=== PATIENT | female | born 1950 | race Caucasian/White ===

== ENCOUNTER → 2020-11-11 | Outpatient (CLI) | payer OTHER ==
[~2020-11-11] MED LIST: COVID-19 VACC, MRNA(MODERNA)/PF 100 MCG/0.5 ML VIAL IM ONE
== END ==
LOC: VACCPMC 17:00
DX: Z23 Encounter for immunization (principal); Z20.828 Contact with and (suspected) exposure to other viral communicable diseases

== ENCOUNTER → 2020-12-15 | Outpatient (CLI) | payer OTHER | END | DRG 951 | LOC: VACCPMC 09:05 | DX: Z23 Encounter for immunization (principal); Z20.822 Contact with and (suspected) exposure to COVID-19 | CPT/HCPCS: 0012A; 91301 ==

== ENCOUNTER 2024-12-11 08:00 | Outpatient (RCR) | payer MEDICARE | END 2024-12-12 | LOC: PT 08:00 | PROVIDERS: ATTEND Physical Medicine & Rehabilitation Sports Medicine | DX: M76.02 Gluteal tendinitis, left hip (principal) ==

== ENCOUNTER 2025-01-08 07:00 | Outpatient (RCR) | payer MEDICARE | END 2025-01-09 | LOC: PT 07:00 | PROVIDERS: ATTEND Physical Medicine & Rehabilitation Sports Medicine | DX: M25.552 Pain in left hip (principal); M76.892 Other specified enthesopathies of left lower limb, excluding foot ==

== ENCOUNTER → 2025-01-08 | Outpatient (REF) | payer MEDICARE | LOC: MRI 08:56 | DX: M51.35 Other intervertebral disc degeneration, thoracolumbar region (principal); M25.552 Pain in left hip; M54.16 Radiculopathy, lumbar region | CPT/HCPCS: 72148 ==